=== PATIENT | male | born 1930 | race Hispanic/Latino ===

== ENCOUNTER 2016-08-19 11:50 | Inpatient (IN) | payer MEDICARE, BC ==
[2016-08-19 12:13] VITALS: BMI 27.4
--- NOTE | 2016-08-19 12:19 | ED PDOC ---
Arrival/HPI - General Time Seen by Provider: 08/19/16 11:54 Historian: Patient - History of Present Illness Narrative History of Present Illness (Text): 08/19/16 12:16 A 85 year old male, whose past medical history includes hemophilia and hypertension, was sent into the emergency department by PMD complaining of worsening shortness of breath over the past week. Patient denies any relieving or exacerbating factors. Patient denies any fever, nausea, vomiting, diarrhea, abdominal pain, urinary symptoms, hematuria, hematochezia, rectal bleeding, chest pain or any other complaints. Construction Inspector: Dr. Walker Time/Duration: 1 week Symptom Course: Worsening Quality: Other Context: Home Past Medical History - Provider Review Nursing Documentation Reviewed: Yes - Infectious Disease Hx of Infectious Diseases: None - Tetanus Immunization Tetanus Immunization: Unknown - Cardiac Hx Cardiac Disorders: Yes Hx Hypertension: Yes Hx Pacemaker: No - Pulmonary Hx Respiratory Disorders: No - Neurological Hx Neurological Disorder: Yes Other/Comment: myastenia gravis - HEENT Hx HEENT Disorder: No - Renal Hx Renal Disorder: No - Endocrine/Metabolic Hx Endocrine Disorders: Yes - Hematological/Oncological Hx Blood Disorders: Yes Hx Hemophilia: Yes Other/Comment: Factor VIII deficiency - Integumentary Hx Dermatological Disorder: Yes Other/Comment: shingles - Musculoskeletal/Rheumatological Hx Musculoskeletal Disorders: Yes Hx Falls: No Other/Comment: bilateral knee surgery - Gastrointestinal Hx Gastrointestinal Disorders: No - Genitourinary/Gynecological Hx Genitourinary Disorders: No - Psychiatric Hx Psychophysiologic Disorder: No Hx Emotional Abuse: No Hx Physical Abuse: No Hx Substance Use: No - Surgical History Hx Coronary Stent: Yes Hx Orthopedic Surgery: Yes (bilat knees) - Anesthesia Hx Anesthesia: Yes Hx Anesthesia Reactions: No Hx Malignant Hyperthermia: No - Suicidal Assessment Feels Threatened In Home Enviroment: No Family/Social History - Physician Review Nursing Documentation Reviewed: Yes Family/Social History: No Known Family HX Smoking Status: Former Smoker Hx Alcohol Use: No Hx Substance Use: No Hx Substance Use Treatment: No Allergies/Home Meds Allergies/Adverse Reactions: Allergies No Known Allergies Allergy (Verified 05/23/16 10:52) Home Medications: Home Meds Medication Instructions Recorded Confirmed Aspirin [Aspir 81] 81 mg PO Q48H 09/12/13 06/28/16 Metoprolol Tartrate 25 mg PO DAILY 12/14/15 06/28/16 Prednisone [Deltasone] 20 mg PO DAILY 06/28/16 06/28/16 Review of Systems - Physician Review All systems were reviewed & negative as marked: Yes - Review of Systems Constitutional: absent: Fevers Respiratory: SOB Cardiovascular: absent: Chest Pain Gastrointestinal: absent: Abdominal Pain, Diarrhea, Nausea, Vomiting, Hematochezia Genitourinary Male: absent: Dysuria, Frequency, Hematuria, Urinary Output Changes Physical Exam Vital Signs Reviewed: Yes Vital Signs Temp Pulse Resp BP Pulse Ox 08/19/16 14:21 90 135/96 H 08/19/16 13:29 85 18 131/93 H 100 08/19/16 12:54 131 H 146/113 H 08/19/16 12:30 97.4 F L 108 H 25 H 146/113 H 98 08/19/16 12:24 97.5 F L 123 H 25 H 146/113 H 98 08/19/16 12:16 98.0 F 121 H 18 151/96 H 97 Temperature: Afebrile Blood Pressure: Hypertensive Pulse: Tachycardic Respiratory Rate: Normal Appearance: Positive for: Well-Appearing, Non-Toxic, Comfortable Pain Distress: None Mental Status: Positive for: Alert and Oriented X 3 - Systems Exam Head: Present: Atraumatic, Normocephalic Pupils: Present: PERRL Extroacular Muscles: Present: EOMI Conjunctiva: Present: Normal Mouth: Present: Moist Mucous Membranes Neck: Present: Normal Range of Motion Respiratory/Chest: Present: Good Air Exchange, Other (Crackles to bilateral bases). No: Respiratory Distress, Accessory Muscle Use Cardiovascular: Present: Regular Rate and Rhythm, Normal S1, S2. No: Murmurs Abdomen: Present: Normal Bowel Sounds. No: Tenderness, Distention, Peritoneal Signs Back: Present: Normal Inspection Upper Extremity: Present: Normal Inspection. No: Cyanosis, Edema Lower Extremity: Present: Normal Inspection. No: Edema Neurological: Present: GCS=15, CN II-XII Intact, Speech Normal Skin: Present: Warm, Dry, Normal Color. No: Rashes Psychiatric: Present: Alert, Oriented x 3, Normal Insight, Normal Concentration Medical Decision Making ED Course and Treatment: 08/19/16 12:16 Impression: A 85 year old male sent in for worsening shortness of breath. Patient denies any chest pain. Plan: -- Chest xray -- EKG -- Labs -- Blood culture -- Urinalysis -- Reassess and disposition Progress Notes: EKG shows new onset atrial fibrillation at [address]/T wave changes. Interpreted by me. Report Date : 08/19/2016 13:20:34 Procedure: Chest xray Dictator : Toby Isidro MD IMPRESSION: No active disease. 08/19/16 13:34 Repeat EKG shows atrial fibrillation at [address]/T wave changes. Interpreted by me. 08/19/16 13:[address] Walker, patient's leasing specialist, who states patient can receive Heparin and accepts patient for telemetry admission. pt known to have normal factor level at this time. no h/o of bleeding as pe rpt. 08/19/16 14:11 - Lab Interpretations Lab Results: 08/19/16 12:40 08/19/16 12:40 Lab Results 08/19/16 12:40: WBC 7.8 D, RBC 4.50, Hgb 13.2 L, Hct 39.3 L, MCV 87.3, MCH 29.3 , MCHC 33.6, RDW 13.6, Plt Count 260, MPV 10.3, Gran % 79.4 H, Lymph % (Auto) 9.7 L, [place] % (Auto) 10.3 H, Eos % (Auto) 0.3 L, Baso % (Auto) 0.3, Gran # 6.17 , Lymph # 0.8 L, [place] # 0.8 H, Eos # 0.0, Baso # 0.02, PT 12.3 H, INR 1.14 H, APTT 36.6 H, Sodium 137, Potassium 5.0, Chloride 100, Carbon Dioxide 29, Anion Gap 13, BUN 14, Creatinine 0.8, Est GFR ( Amer) > 60, Est GFR (Non-Af Amer) > 60, Random Glucose 105, Calcium 8.9, Magnesium 2.0, Total Bilirubin 0.9 , AST 32, ALT 60 H, Alkaline Phosphatase 99, Lactate Dehydrogenase 517, Total Creatine Kinase 56, Troponin I 0.03 D, NT-Pro-B Natriuret Pep 1740 H, Total Protein 6.6, Albumin 3.7, Globulin 3.0, Albumin/Globulin Ratio 1.2, Urine Color Yellow, Urine Appearance Clear, Urine pH 6.0, Ur Specific [place] 1.020, Urine Protein Negative, Urine Glucose (UA) Negative, Urine Ketones Negative, Urine Blood Trace-lysed H, Urine Nitrate Negative, Urine Bilirubin Negative, Urine Urobilinogen 1.0 H, Ur Leukocyte Esterase Negative, Urine RBC 0 - 2, Urine WBC Negative, Urine Bacteria Trace I have reviewed the lab results: Yes - RAD Interpretation Radiology Orders: 08/19/16 12:14 CHEST PORTABLE [RAD] Stat - Medication Orders Current Medication Orders: Aspirin (Ecotrin) 81 mg PO Q48H [facility] Last Admin: 08/19/16 14:21 Dose: 81 MG Metoprolol Tartrate (Lopressor) 25 mg PO DAILY [facility] Last Admin: 08/19/16 14:21 Dose: 25 MG MAR Pulse and Blood Pressure Document 08/19/16 14:21 MMA (Rec: 08/19/16 14:21 [place] [facility] [id number][place] Pulse Pulse Rate (60-90) 90 Blood Pressure Blood Pressure (100/60-150/90) 135/96 Discontinued Medications Diltiazem HCl (Cardizem) 15 mg IVP STAT STA Stop: 08/19/16 12:29 Last Admin: 08/19/16 12:54 Dose: 15 MG MAR Pulse and Blood Pressure Document 08/19/16 12:54 MMA (Rec: 08/19/16 12:54 [facility] [id number][place] Pulse Pulse Rate (60-90) 131 Blood Pressure Blood Pressure (100/60-150/90) 146/113 IVP Administration Document 08/19/16 12:54 MMA (Rec: 08/19/16 12:54 [facility] [id number][place] Charges for Administration # of IVP Administrations 1 Enoxaparin Sodium (Lovenox) 74 mg SC STAT STA PRN Reason: Protocol Stop: 08/19/16 13:45 Last Admin: 08/19/16 14:20 Dose: 74 MG Subcutaneous Administrations Document 08/19/16 14:20 MMA (Rec: 08/19/16 14:20 MMA [facility] [id number][place] Injection Site MAR Injection Site Umbilicus Charges for Administration # of Subcutaneous Administrations 1 Furosemide (Lasix) 40 mg IVP STAT STA Stop: 08/19/16 13:41 Last Admin: 08/19/16 14:21 Dose: 40 MG MAR Blood Pressure Document 08/19/16 14:21 MMA (Rec: 08/19/16 14:21 [id number]) Blood Pressure Blood Pressure (100/60-150/90) 135/96 IVP Administration Document 08/19/16 14:21 MMA (Rec: 08/19/16 14:21 [id number]) Charges for Administration # of IVP Administrations 1 - Scribe Statement The provider has reviewed the documentation as recorded by the Nelidaibsindy Blackwell Provider Scribe Attestation: All medical record entries made by the Scribe were at my direction and personally dictated by me. I have reviewed the chart and agree that the record accurately reflects my personal performance of the history, physical exam, medical decision making, and the department course for this patient. I have also personally directed, reviewed, and agree with the discharge instructions and disposition. Disposition/Present on Arrival - Present on Arrival Any Indicators Present on Arrival: No History of DVT/PE: No History of Uncontrolled Diabetes: No Urinary Catheter: No History Surgical Site Infection Following: None - Disposition Have Diagnosis and Disposition been Completed?: Yes Diagnosis: Atrial fibrillation, Congestive heart failure Disposition: HOSPITALIZED Disposition Time: 13:45 Condition: GOOD
[2016-08-19 12:55] LABS: ADD MANUAL DIFF? NO
[2016-08-19 13:00] LABS: BASO # 0.02 K/mm3 (0.0-2.0); BASO % 0.3 % (0.0-3.0); EOS % 0.3 % (1.5-5.0); GRAN # 6.17 (1.4-6.5); GRAN % 79.4 % (50.0-68.0); HEMATOCRIT 39.3 % (42.0-52.0); LYMPH # 0.8 (1.2-3.4); LYMPH % 9.7 % (22.0-35.0); MEAN CELL VOLUME 87.3 fL (80.0-105.0); MEAN CORPUSCULAR HEMOGLOBIN 29.3 pg (25.0-35.0); MEAN CORPUSCULAR HGB CONC 33.6 g/dl (31.0-37.0); MEAN PLATELET VOLUME 10.3 fl (7.0-11.0); MONO # 0.8 (0.1-0.6); MONO % 10.3 % (1.0-6.0); PLATELET COUNT 260 10^3/uL (120.0-450.0); RED CELL DISTRIBUTION WIDTH 13.6 % (11.5-14.5); WHITE BLOOD COUNT 7.8 10^3/ul (4.5-11.0)
[2016-08-19 13:09] LABS: URINE BILIRUBIN NEGATIVE (NEGATIVE); URINE BLOOD TRACE-LYSED (NEGATIVE); URINE GLUCOSE (UA) NEGATIVE (NEGATIVE); URINE KETONE NEGATIVE (NEGATIVE); URINE LEUKOCYTE ESTERASE NEGATIVE Leu/uL (NEGATIVE); URINE PROTEIN NEGATIVE mg/dL (<30 mg/dL)
[2016-08-19 13:10] LABS: ALB/GLOB RATIO 1.2 (1.1-1.8); ALKALINE PHOSPHATASE 99 U/L (38-133); ALT/SGPT 60 U/L (7-56); AST/SGOT 32 U/L (15-59); BILIRUBIN,TOTAL 0.9 mg/dL (0.2-1.3); BLOOD UREA NITROGEN 14 mg/dL (7-21); CALCIUM 8.9 mg/dL (8.4-10.5); CARBON DIOXIDE 29 mmol/L (21-33); CHLORIDE 100 mmol/L (98-107); GFR AFRICAN-AMERICAN > 60; GLUCOSE,RANDOM 105 mg/dL (70-110); SODIUM 137 mmol/L (132-148); TOTAL PROTEIN 6.6 g/dL (5.8-8.3)
[2016-08-19 13:11] LABS: INR 1.14 (0.93-1.08); PARTIAL THROMBOPLASTIN TIME 36.6 Seconds (23.7-30.8)
[2016-08-19 13:15] LABS: URINE APPEARANCE CLEAR (CLEAR); URINE COLOR YELLOW (YELLOW)
[2016-08-19 13:20] LABS: URINE BACTERIA TRACE (NEG); URINE RBC 0 - 2 /hpf (0-2); URINE WBC NEGATIVE /hpf (0-6)
[2016-08-19 13:22] LABS: TROPONIN I 0.03 ng/mL
--- NOTE | 2016-08-19 13:22 | RAD ---
HISTORY: sob COMPARISON: 05/05/2016 FINDINGS: LUNGS: No active pulmonary disease. PLEURA: No significant pleural effusion identified, no pneumothorax apparent. CARDIOVASCULAR: Normal. OSSEOUS STRUCTURES: No significant abnormalities. VISUALIZED UPPER ABDOMEN: Normal. OTHER FINDINGS: None. IMPRESSION: No active disease.
[2016-08-19] MEDS ORDERED: Enoxaparin 80 mg Syringe SC STA (13:44)
--- NOTE | 2016-08-19 18:18 | CARD ---
APPROVED REPORT EKG Measurement Heart [id number] <Conclusion> Atrial fibrillation Left axis deviation Inferior infarct, age undetermined Abnormal ECG
--- NOTE | 2016-08-19 18:19 | CARD ---
APPROVED REPORT EKG Measurement Heart [id number] <Conclusion> Atrial fibrillation with rapid ventricular response with premature ventricular or aberrantly conducted complexes Left axis deviation Inferior infarct, age undetermined Abnormal ECG
[2016-08-19] MEDS ORDERED: Potassium Chloride 20 mEq ER Tab PO STA (20:04)
[2016-08-19] MEDS ORDERED: Albuterol-Ipratrop 3 mg / 0.5 (3 ml) UD IH PRN (20:27)
[2016-08-19] MEDS: Albuterol-Ipratrop 3 mg / 0.5 (3 ml) UD IH SCH (20:39)
[2016-08-20 08:01] LABS: HEMATOCRIT 38.1 % (42.0-52.0); MEAN CORPUSCULAR HEMOGLOBIN 28.9 pg (25.0-35.0); MEAN CORPUSCULAR HGB CONC 33.6 g/dl (31.0-37.0); MEAN PLATELET VOLUME 10.1 fl (7.0-11.0); RED CELL DISTRIBUTION WIDTH 13.6 % (11.5-14.5); WHITE BLOOD COUNT 6.9 10^3/ul (4.5-11.0)
[2016-08-20 08:11] LABS: INR 1.15 (0.93-1.08); PARTIAL THROMBOPLASTIN TIME 39.9 Seconds (23.7-30.8)
[2016-08-20] MEDS: Albuterol-Ipratrop 3 mg / 0.5 (3 ml) UD IH SCH ×3 (08:16→20:05)
[2016-08-20 08:18] LABS: ALB/GLOB RATIO 1.3 (1.1-1.8); ALKALINE PHOSPHATASE 95 U/L (38-133); ALT/SGPT 53 U/L (7-56); AST/SGOT 28 U/L (15-59); BILIRUBIN,TOTAL 0.9 mg/dL (0.2-1.3); BLOOD UREA NITROGEN 17 mg/dL (7-21); CALCIUM 8.7 mg/dL (8.4-10.5); CARBON DIOXIDE 30 mmol/L (21-33); CHLORIDE 98 mmol/L (95-110); GFR AFRICAN-AMERICAN > 60; GLUCOSE,RANDOM 84 mg/dL (70-110); SODIUM 134 mmol/L (132-148); TOTAL PROTEIN 6.2 g/dL (5.8-8.3)
--- NOTE | 2016-08-20 10:21 | CON ---
DATE: 08/20/2016 Cardiology consultation (for Dr. Reed). HISTORY OF PRESENT ILLNESS: The patient is an 85-year-old male who presents with dyspnea. No chest pain noted. PAST MEDICAL HISTORY: Notable for hemophilia in the past. The patient's cardiac history is consistent with "heart murmur" in the past. A stress test done in 11/2015 revealed an ejection fraction of 45%. The patient received Lasix in the Emergency Room with resolution of his dyspnea today. PAST MEDICAL HISTORY: Free of diabetes mellitus. No previous myocardial infarction. SOCIAL HISTORY: The patient denies smoking. REVIEW OF SYSTEMS: A 14-point review of systems was reviewed. No abnormal bleeding noted, although he has had hemarthrosis in the past. Negative angina. Negative orthopnea. PHYSICAL EXAMINATION: VITAL SIGNS: Blood pressure is 122/81, the heart rate is in the 80s, atrial fibrillation. NECK: Negative JVD. LUNGS: Basilar rales. HEART: Revealed S1, S2. EXTREMITIES: Without edema. EKG shows atrial fibrillation with nonspecific ST-T changes with a left anterior hemiblock. LABORATORIES: Reveals a troponin that is negative x 1. The proBNP is 1740. Creatinine is normal. Hemoglobin is 12.8. IMPRESSION: 1. Acute systolic congestive heart failure. 2. Dilated cardiomyopathy. 3. New onset atrial fibrillation. 4. History of hemophilia. 5. Aortic stenosis versus sclerosis. 6. Dyspnea, which is improved. Given these findings, the patient is currently not anticoagulated. Awaiting hematology's input befor e anticoagulation. We will continue Lasix today. An echocardiogram has been ordered. Frank Ramirez MD cc: [id number] TT: 08/20/2016 10:20:36 Confirmation # [id number] Dictation # [id number] asad
[2016-08-20] MEDS: Enoxaparin 60 mg Syringe SC SCH (15:46)
--- NOTE | 2016-08-21 01:53 | HP ---
HISTORY OF PRESENT ILLNESS: The patient is an 85-year-old male who presented to our office on Monday with increased shortness of breath for 2 weeks. He is unable to lay flat and sleep in the night. He is short of breath at rest. Denies any fever. He has a dry cough. No chest pain. He has a history of coronary artery disease, status post cardiac stent placement at [facility]. 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 His factor VIII levels were around 1%. He has been getting for past 3 months, recombinant factor VIII twice a week. He was also given steroids and he is on tapering doses of steroids, now 5 mg of prednisone every other day. A recent factor level was 69 and inhibitor was undetectable. He has a hemarthrosis of the left knee and extensive bruising which all of them have resolved now. No bleeding. He was sent to ED from office. He was found to have rapid atrial fibrillation and congestive cardiac failure. Chest x-ray did not show any infiltrate. He has known aortic valve stenosis. He also has a history of myasthenia gravis. He was on steroids for that which he weaned himself off a year ago. He does not see any endocrine doctor. PAST MEDICAL HISTORY: 1. Acquired hemophilia. 2. Aortic valve stenosis. 3. Congestive cardiac failure. 4. History of shingles. 5. Bilateral knee surgery. 6. Recent left knee hemarthrosis. 7. Extensive ecchymosis, recently resolved. 8. Coronary artery disease, status post cardiac stent placement. 9. Myasthenia gravis. PAST SURGICAL HISTORY: Coronary stent placement, bilateral knee surgery and knee replacement. FAMILY HISTORY: No positive history in mother or father. PERSONAL HISTORY: Ex-smoker. No history of alcohol abuse. SOCIAL HISTORY: Lives at home with . ALLERGIES: No known drug allergies. HOME MEDICATIONS: Metoprolol 25 mg daily, aspirin 81 mg daily and prednisone 5 mg every other day. REVIEW OF SYSTEMS: As per HPI. The rest of 12-point review of systems reviewed and negative. PHYSICAL EXAMINATION: GENERAL: Mild respiratory distress. VITAL SIGNS: Heart rate is 110 per minute, temperature 98.7, respiratory 15 per minute, blood pressure 130/80 and pulse ox is 98% on room air. HEENT: Normal. CHEST: Bilateral bronchospasm present. Crepitations at bases. CARDIOVASCULAR: Atrial fibrillation positive. Heart rate is irregularly irregular. ABDOMEN: Soft, nontender with no hepatosplenomegaly. EXTREMITIES: No edema. NEUROLOGIC: Alert and oriented x 3. No focal sensorimotor deficit. SKIN: No petechia and no rash. CENTRAL NERVOUS SYSTEM: Alert and oriented x 3. No sensorimotor deficit. LYMPHATICS: No lymphadenopathy. No spine tenderness. LABORATORY DATA: White count 7.8, hemoglobin 13.2, hematocrit 39.3 and platelet count 260. Sodium 137, potassium 5, BUN 14, creatinine 0.8, glucose 104, PTT 36, INR 1.1 and PT 12.3. ASSESSMENT AND PLAN: 1. Acquired hemophilia. 2. New onset atrial fibrillation. 3. Congestive cardiac failure. 4. Aortic valve stenosis. 5. Myasthenia gravis. 6. Coronary artery disease. PLAN: He will be admitted to tele monitoring. He received one dose of IV Cardizem in the ER. Consulted Dr. Reed. Cardizem p.o. started at 60 mg orally 3 times a day. Will do aggressive diuresis. He received 40 mg IV Lasix in the ER and 1 dose of Lasix now as he is very tachypneic, 20 mg of IV Lasix stat and K-Dur 20 mEq p.o. daily. Will increase the metoprolol to 25 mg p.o. b.i.d. for tachycardia. Ambien 5 mg p.o. at bedtime p.r.n. Will give DuoNeb every 8 hours and p.r.n. Echocardiogram ordered. Factor VIII level and inhibitor level drawn and sent stat. Anticoagulation; we have to be very cautious as he has acquired hemophilia. Recent factor levels have been normal. I will give him 50 mg subcu Lovenox q.12 hours. He is not a candidate for long-term anticoagulation because of very high risk of bleeding. Factor VIII levels need to be closely monitored. Echocardiogram done today, preliminary results showed severe aortic stenosis. Will discuss with cardiology for further plan and management. Heart rate is being monitored and is better controlled now. Shortness of breath has improved since admission. I discussed with the patient all of the above. discussed with the staff nurse. Phuong Walker MD cc: [id number] TT: 08/21/2016 01:52:22 sn [email or web address]
[2016-08-21] MEDS: Pantoprazole 40 mg EC Tab PO SCH (06:23)
[2016-08-21] MEDS: Albuterol-Ipratrop 3 mg / 0.5 (3 ml) UD IH SCH ×3 (07:30→21:00)
[2016-08-21 08:03] LABS: HEMATOCRIT 39.9 % (42.0-52.0); MEAN CELL VOLUME 86.2 fL (80.0-105.0); MEAN CORPUSCULAR HEMOGLOBIN 29.2 pg (25.0-35.0); MEAN CORPUSCULAR HGB CONC 33.8 g/dl (31.0-37.0); MEAN PLATELET VOLUME 10.4 fl (7.0-11.0); RED CELL DISTRIBUTION WIDTH 13.8 % (11.5-14.5); WHITE BLOOD COUNT 6.5 10^3/ul (4.5-11.0)
--- NOTE | 2016-08-21 10:35 | CARD ---
APPROVED REPORT EXAM: Two-dimensional and M-mode echocardiogram with Doppler and color Doppler. INDICATION Atrial Fibrillation 2D DIMENSIONS Left Atrium (2D)5.1 (1.6-4.0cm)IVSd1.1 (0.7-1.1cm) Aortic Root (2D)3.4 (2.0-3.7cm)LVDd4.0 (3.9-5.9cm) LVOT Diameter2.0 (1.8-2.4cm)PWd1.2 (0.7-1.1cm) LVDs3.0 (2.5-4.0cm)FS (%) 24.4 % LVEF (%)49.0 (>50%) M-Mode DIMENSIONS Aortic Cusp Exc.1.60 (1.5-2.0cm) Aortic Valve AoV Peak Halsuoht481.0cm/sAoV VTI36.7cmAO Peak GR.15mmHg LVOT Peak Qcotuhuq64.6cm/sLVOT VTI9.02cmAO Mean GR.8mmHg RYDER (VMAX)0.99or6MSJ (VTI)0.77cm2 Mitral Valve MV E Huokfrto363.0cm/s TDI Lateral E' Peak V11.20cm/sMedial E' Peak V5.36cm/sE/Lateral E'11.8 E/Medial E'24.6 Pulmonary Valve PV Peak Vipyqocz10.1cm/sPV Peak Grad.2mmHg Tricuspid Valve TR Peak Fvphlfxs861dt/sRAP IQPEPYYH6raMaPA Peak Gr.26mmHg [id number] LEFT VENTRICLE The left ventricle is normal size. There is borderline to mild concentric left ventricular hypertrophy. The systolic function is moderately impaired.EF-35% There is moderate to severe hypokinesis in the mid-anteroseptal wall. A FIB No left ventricle thrombus noted on this study. There is no ventricular septal defect visualized. There is no left ventricular aneurysm. There is no mass noted in the left ventricle. RIGHT VENTRICLE The right ventricle is mildly to moderately dilated. There is normal right ventricular wall thickness. Systolic function is of RV mildly to moderately reduced. ATRIA The left atrium is moderately dilated. The right atrium is moderately dilated. The interatrial septum is intact with no evidence for an atrial septal defect. AORTIC VALVE The aortic valve is calcified and displays decreased opening. There is trace aortic regurgitation. There is moderate to severe valvular aortic stenosis. There is no aortic valvular vegetation. MITRAL VALVE The mitral valve is thickened but opens well. Mitral annular calcification is moderate. Mitral regurgitation is mild to moderate. There is no mitral valve stenosis. There is no evidence of mitral valve prolapse. TRICUSPID VALVE The tricuspid valve leaflets are thickened , but open well. There is mild to moderate tricuspid regurgitation.RVSP-31 mmof HG. There is no tricuspid valve stenosis. There is no tricuspid valve prolapse or vegetation. PULMONIC VALVE The pulmonary valve is normal in structure. There is trace pulmonic valvular regurgitation. There is no pulmonic valvular stenosis. GREAT VESSELS The aortic root is normal in size. The ascending aorta is normal in size. The pulmonary artery is normal. The IVC is dilated. PERICARDIAL EFFUSION There is no pleural effusion. There is no pericardial effusion. <Conclusion> The left ventricle is normal size. There is borderline to mild concentric left ventricular hypertrophy. The systolic function is moderately impaired.EF-35% Systolic function is of RV mildly to moderately reduced. There is moderate to severe valvular aortic stenosis. Mitral regurgitation is mild to moderate. There is mild to moderate tricuspid regurgitation.RVSP-31 mmof HG.
--- NOTE | 2016-08-21 11:56 | PN ---
DATE: 08/21/2016 The patient's heart rate is much better controlled on p.o. Cardizem. The patient wants to go home. PHYSICAL EXAMINATION: VITAL SIGNS: Blood pressure is 118/66. The heart rate is in the 80s, atrial fibrillation. NECK: Negative JVD. LUNGS: Without rales. HEART: Revealed S1, S2. EXTREMITIES: Without edema. The hemoglobin is 13.5. Chemistries are unremarkable. Echocardiogram reveals ejection fraction of 35% with mild LVH. There is aortic stenosis noted with p ulmonary hypertension. IMPRESSION: 1. Atrial fibrillation. 2. Aortic stenosis. 3. Depressed left ventricle. 4. Hemophilia. Given these findings, awaiting for Dr. Walker's input to see whether the patient can be anticoagulated . The patient is at increase for thromboembolism with a possible cerebrovascular accident. In addition, future intervention of the aortic valve may be necessary. I have discussed this with the patient and family in detail. In the morning, we will transfer the ca re back to Dr. Ashley. Frank Ramirez MD cc: [id number] TT: 08/21/2016 11:55:50 Confirmation # [id number] Dictation # [id number]
[2016-08-21] MEDS: Enoxaparin 60 mg Syringe SC SCH ×2 (15:16→23:08)
--- NOTE | 2016-08-21 18:47 | CP.PCM.PN ---
Subjective - Date & Time of Evaluation Date of Evaluation: 08/21/16 Time of Evaluation: 13:00 - Subjective Subjective: HISTORY OF PRESENT ILLNESS: The patient is an 85-year-old male who presented to our office on Monday with increased shortness of breath for 2 weeks. He is unable to lay flat and sleep in the night. He is short of breath at rest. Denies any fever. He has a dry cough. No chest pain. He has a history of coronary artery disease, status post cardiac stent placement at [facility]. 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 His factor VIII levels were around 1%. He has been getting for past 3 months, recombinant factor VIII twice a week. He was also given steroids and he is on tapering doses of steroids, now 5 mg of prednisone every other day. A recent factor level was 69 and inhibitor was undetectable. He has a hemarthrosis of the left knee and extensive bruising which all of them have resolved now. No bleeding. He was sent to ED from office. He was found to have rapid atrial fibrillation and congestive cardiac failure. Chest x-ray did not show any infiltrate. He has known aortic valve stenosis. He also has a history of myasthenia gravis. He was on steroids for that which he weaned himself off a year ago. He does not see any endocrine doctor. He had an episode of SVT with heart rate of 180/min. Shortness of breath has improved markedly since admission. PAST MEDICAL HISTORY: 1. Acquired hemophilia. 2. Aortic valve stenosis. 3. Congestive cardiac failure. 4. History of shingles. 5. Bilateral knee surgery. 6. Recent left knee hemarthrosis. 7. Extensive ecchymosis, recently resolved. 8. Coronary artery disease, status post cardiac stent placement. 9. Myasthenia gravis. PAST SURGICAL HISTORY: Coronary stent placement, bilateral knee surgery and knee replacement. FAMILY HISTORY: No positive history in mother or father. PERSONAL HISTORY: Ex-smoker. No history of alcohol abuse. SOCIAL HISTORY: Lives at home with . ALLERGIES: No known drug allergies. HOME MEDICATIONS: Metoprolol 25 mg daily, aspirin 81 mg daily and prednisone 5 mg every other day. REVIEW OF SYSTEMS: As per HPI. The rest of 12-point review of systems reviewed and negative. PHYSICAL EXAMINATION: GENERAL: Mild respiratory distress. VITAL SIGNS: reviewed. HEENT: Normal. CHEST: Bilateral bronchospasm present. Crepitations at bases. CARDIOVASCULAR: Atrial fibrillation positive. Heart rate is irregularly irregular. ABDOMEN: Soft, nontender with no hepatosplenomegaly. EXTREMITIES: No edema. NEUROLOGIC: Alert and oriented x 3. No focal sensorimotor deficit. SKIN: No petechia and no rash. CENTRAL NERVOUS SYSTEM: Alert and oriented x 3. No sensorimotor deficit. LYMPHATICS: No lymphadenopathy. No spine tenderness. LABORATORY DATA: reviewed. ASSESSMENT AND PLAN: 1. Acquired hemophilia. 2. New onset atrial fibrillation. 3. Congestive cardiac failure. 4. Aortic valve stenosis. 5. Myasthenia gravis. 6. Coronary artery disease. PLAN: 1. CV: Severe aortic stenosis with CHF. New onset A-Fib. episode of tachycardia with HR 180/min. Cardizem p.o. started at 60 mg orally 3 times a day. Metorpolol 25 mg BID. Tele monitoring. on anti -coagulation with lovenox 50 mg BID. Will discuss with cardiology about length of anticoagulation. 2. Acquired hemophillia. Factor level pending. He is off Factor VIII infusion for past 3 weeks. Caution with anticoagulation due to bleeding disorder. 3. Aortic stenosis : cardiology input awaited. 4. Mysthenia gravis : off steroids now. need follow up with endocrine. Phuong Walker MD Objective - Vital Signs/Intake and Output Vital Signs (last 24 hours): Temp Pulse Resp BP Pulse Ox 98.2 F 83 20 112/77 97 08/21/16 18:00 08/21/16 18:00 08/21/16 18:00 08/21/16 18:00 08/21/16 06:00 Intake and Output: 08/21/16 08/21/16 06:59 18:59 Intake Total 2160 240 Output Total 4 2 Balance 2156 238 - Medications Medications: Current Medications Albuterol/Ipratropium (Duoneb 3 Mg/0.5 Mg (3 Ml) Ud) 3 ml IH TIDRESP [facility] Last Admin: 08/21/16 13:43 Dose: 3 ml Albuterol/Ipratropium (Duoneb 3 Mg/0.5 Mg (3 Ml) Ud) 3 ml IH Q2H PRN PRN Reason: Shortness of Breath Aspirin (Ecotrin) 81 mg PO Q48H [facility] Last Admin: 08/21/16 14:29 Dose: 81 mg Diltiazem HCl (Cardizem) 60 mg PO TID [facility] Last Admin: 08/21/16 17:17 Dose: 60 mg Enoxaparin Sodium (Lovenox) 50 mg SC Q12H GAYATRI PRN Reason: Protocol Last Admin: 08/21/16 15:16 Dose: 50 mg Furosemide (Lasix) 40 mg IVP DAILY [facility] Last Admin: 08/21/16 10:12 Dose: 40 mg Metoprolol Tartrate (Lopressor) 25 mg PO BID [facility] Last Admin: 08/21/16 17:16 Dose: 25 mg Pantoprazole Sodium (Protonix Ec Tab) 40 mg PO 0630 [facility] Last Admin: 08/21/16 06:23 Dose: 40 mg Sennosides (Senokot Tab) 8.6 mg PO BID [facility] Last Admin: 08/21/16 17:14 Dose: Not Given Zolpidem Tartrate (Ambien) 5 mg PO HS PRN; Protocol PRN Reason: Insomnia Last Admin: 08/20/16 23:28 Dose: 5 mg - Labs Labs: 08/21/16 07:57 08/20/16 07:53 PT 12.4 Seconds (9.9-11.8) H 08/20/16 07:53 INR 1.15 (0.93-1.08) H 08/20/16 07:53 APTT 39.9 Seconds (23.7-30.8) H 08/20/16 07:53
[2016-08-22] MEDS: Pantoprazole 40 mg EC Tab PO SCH (06:45)
--- NOTE | 2016-08-22 06:57 | PN ---
DATE: 08/22/2016 SUBJECTIVE: The patient has no complaints of any chest pain, no shortness of breath, no headaches. PHYSICAL EXAMINATION: VITAL SIGNS: Temperature is 97.8, pulse is 77, blood pressure 97/54, respirations 20, O2 saturation 95%. GENERAL: The patient comfortable, in no acute distress. HEENT: Anicteric sclerae. Moist mucosa. NECK: No JVD or adenopathy. CARDIAC: S1/S2. No murmurs. No rubs. Regular. RESPIRATORY: Clear to auscultation bilaterally. No wheezes, rales, or rhonchi. Good air entry. ABDOMEN: Bowel sounds are positive, soft, nontender, and nondistended. EXTREMITIES: No edema. Has 1+ pulses. ASSESSMENT: 1. Acquired hemophilia. 2. Atrial fibrillation. 3. Aortic stenosis. 4. Myasthenia gravis. 5. Coronary artery disease. PLAN: The patient is currently comfortable. He does have aortic stenosis. He is on Cardizem. He i s on Lovenox for anticoagulation. There are risks of bleeding and he does understand this. He is cu rrently on nebulizer treatments. He is on Lasix daily. He is receiving a heart healthy diet. He is being followed by cardiology. Will await further input from the highway worker. I will also have the patient continue to be followed by Dr. Walker, his platform loader. Missael Vicente MD cc: [id number] TT: 08/22/2016 06:56:53 Confirmation # [id number] Dictation # [id number] mn
[2016-08-22] MEDS: Albuterol-Ipratrop 3 mg / 0.5 (3 ml) UD IH SCH ×3 (07:44→21:19)
[2016-08-22 08:50] LABS: HEMATOCRIT 39.1 % (42.0-52.0); MEAN CELL VOLUME 86.1 fL (80.0-105.0); MEAN CORPUSCULAR HEMOGLOBIN 28.9 pg (25.0-35.0); MEAN CORPUSCULAR HGB CONC 33.5 g/dl (31.0-37.0); MEAN PLATELET VOLUME 9.7 fl (7.0-11.0); RED CELL DISTRIBUTION WIDTH 13.7 % (11.5-14.5); WHITE BLOOD COUNT 7.3 10^3/ul (4.5-11.0)
[2016-08-22 09:09] LABS: ALB/GLOB RATIO 1.2 (1.1-1.8); ALKALINE PHOSPHATASE 97 U/L (38-133); ALT/SGPT 46 U/L (7-56); AST/SGOT 25 U/L (15-59); BILIRUBIN,TOTAL 1.1 mg/dL (0.2-1.3); BLOOD UREA NITROGEN 17 mg/dL (7-21); CALCIUM 8.5 mg/dL (8.4-10.5); CARBON DIOXIDE 30 mmol/L (21-33); CHLORIDE 94 mmol/L (95-110); GFR AFRICAN-AMERICAN > 60; GLUCOSE,RANDOM 93 mg/dL (70-110); POTASSIUM 3.9 mmol/L (3.6-5.0); SODIUM 135 mmol/L (132-148); TOTAL PROTEIN 6.9 g/dL (5.8-8.3)
--- NOTE | 2016-08-22 09:29 | PN ---
DATE: 08/22/2016 REASON FOR CONSULTATION AND FOLLOWUP: Atrial fibrillation, new onset, acquired hemophilia, aortic st enosis, cardiomyopathy, cannot place on long-term anticoagulation. BRIEF CLINICAL HISTORY: This is an 85-year-old male with past medical history of coronary artery dis ease status post a stent in the past, acquired hemophilia, history of hemarthrosis and Factor VIII le ss than 1%. Recently, patient had twice a week started recumbent Factor VIII infusion, last was done last week ____ last 3 months. Came in here with tachycardia in Dr. Walker's office. The patient see n and found to be new onset of atrial fibrillation. Because of prolonged PTT and acquired hemophilia , history of hemarthrosis, patient cannot be on prolonged anticoagulation. Baseline PTT 39.9 and PT 12.4 and INR 1.15 started on Lovenox. Discussed with the patient, discussed with Dr. Walker. W ill schedule for PALMIRA cardioversion. PHYSICAL EXAMINATION: VITAL SIGNS: Temperature afebrile, heart rate , blood pressure 114/74. HEENT: PERRLA. Extraocular muscles intact. NECK: Supple. No carotid bruits. No thyromegaly. CHEST: Clear to auscultation. HEART: S1, S2 regular. ABDOMEN: Soft. EXTREMITIES: Clubbing, cyanosis negative. BLOOD WORKUP: PT 12.4, PTT 39.9, INR 1.15. Chemistry shows sodium 134, potassium 4, chloride 94, ca rbon dioxide 30, anion gap of 10, BUN 17, creatinine 0.8. WBC 7.3, hemoglobin 13.1, hematocrit 39.1, platelet count 264. IMPRESSION: Acquired Factor VIII deficiency, hemophilia, aortic stenosis, cardiomyopathy. The patie nt underwent echocardiography 08/20/2016, shows ejection fraction 35%, moderate to severe aortic steno sis, systolic function of right ventricle moderately reduced, mitral regurg mild to moderate, m ild to moderate tricuspid regurgitation, right ventricular systolic pressure 31. Coronary artery dis ease, status post stent in the past at [facility], cardiomyopathy. RECOMMENDATION: We will do the PALMIRA cardioversion first so the patient cannot long-term anticoagulati on. Interim, continue Lovenox b.i.d. Further recommendation after the PALMIRA cardioversion. We will f ollow with you. Thank you, Dr. Walker/Dr. Vicente, for providing us the opportunity in taking care of the patient. W e will keep n.p.o. from morning for PALMIRA cardioversion. We will discuss with the family. Rich Reed MD cc: [id number] TT: 08/22/2016 09:29:08 Confirmation # [id number] Dictation # [id number]
[2016-08-22] MEDS ORDERED: Metoprolol 1 mg/ml Inj IVP ONE ×2 (12:19→12:48)
[2016-08-22] MEDS ORDERED: Flumazenil 0.1 mg/ml Inj (5ml) IVP ONE (12:19)
[2016-08-22] MEDS ORDERED: Naloxone 0.4 mg/ml Inj (Adult) ONE (12:20)
[2016-08-22] MEDS ORDERED: Midazolam 2 MG/2 ML VIAL IV ONE ×3 (12:25→12:42)
[2016-08-22] MEDS: Midazolam 2 MG/2 ML VIAL ONE ×3 (12:25→12:42)
[2016-08-22] MEDS ORDERED: Sodium Chloride 0.9% 1,000 ML IV SCH (13:00)
--- NOTE | 2016-08-22 14:38 | CARD ---
APPROVED REPORT EKG Measurement Heart [id number] [place] [id number] <Conclusion> Normal sinus rhythm Left axis deviation Minimal voltage criteria for LVH, may be normal variant Cannot rule out Anterior infarct, age undetermined S/P PALMIRA and Cardioversion
[2016-08-22] MEDS: Enoxaparin 60 mg Syringe SC SCH ×2 (14:58→23:30)
[2016-08-22] MEDS ORDERED: guaiFENesin DM 100 mg-10 mg/5 ml UD PO PRN (16:17)
--- NOTE | 2016-08-22 18:24 | CARD ---
APPROVED REPORT EXAM: Transesophageal echocardiogram with color flow Doppler and Synchronized Cardioversion. INDICATION Atrial Fibrillation 2D DIMENSIONS LVOT Diameter2.0 (1.8-2.4cm) Aortic Valve AoV Peak Kkrdznxt913.0cm/sAoV VTI29.2cmAO Peak GR.13mmHg LVOT Peak Xxsmnbxl13.3cm/sLVOT VTI12.20cmAO Mean GR.6mmHg RYDER (VMAX)1.65qz2UXP (VTI)1.31cm2 Mitral Valve E/A ratio0.0 TDI E/Lateral E'0.0E/Medial E'0.0 Tricuspid Valve TR Peak Xtfzkysw569fb/sRAP UADNGNCH82soFmII Peak Gr.46mmHg [id number] Reason For Test : PALMIRA before CV PROCEDURE After obtaining informed consent, patient underwent transesophageal echo in the Echo Lab. Type of Sedation : Conscious Sedation Sedation was administered by DR BADILLO. Sedation was achieved with Versed and , Fentanyl 3mg and 150 mcg intravenously. Echo enhancement indication: R/O Septal defect. Echo enhancement agent administered: Agitated Saline The PALMIRA was performed without complications. Synchronized Cardioversion attempted: Successful Rhythm following Synchronized Cardioversion: Throughout the procedure, the blood pressure, pulse oximetry, cardiac rhythm, and rate were monitored. The patient tolerated the procedure without adverse effects. Recovery from conscious sedation was uneventful and vital signs were stable. LEFT VENTRICLE The left ventricle is normal size. There is mild left ventricular hypertrophy. Left ventricle systolic function is mild to moderately impaired.EF_35-40% ( A FIB) There is global hypokinesis of the left ventricle. A FIB No left ventricle thrombus noted on this study. There is no ventricular septal defect visualized. There is no left ventricular aneurysm. There is no mass noted in the left ventricle. There is no mass noted in the left ventricle. RIGHT VENTRICLE The right ventricle is mildly dilated. There is normal right ventricular wall thickness. Systolic function is mildly to moderately reduced. ATRIA The left atrium is moderately dilated. The right atrium is mildly dilated. The interatrial septum is intact with no evidence for an atrial septal defect. AORTIC VALVE The aortic valve is moderately sclerotic. There is trace aortic regurgitation. There is moderate valvular aortic stenosis. RYDER 1.5 by Continuity, and 1.4 CM2 by planimetry There is no aortic valvular vegetation. MITRAL VALVE The mitral valve leaflets are thickened. There is no evidence of mitral valve prolapse. There is no mitral valve stenosis. Mitral regurgitation is moderate. TRICUSPID VALVE The tricuspid valve leaflets display thickening. There is mild to moderate tricuspid regurgitation. There is no tricuspid valve prolapse or vegetation. There is no tricuspid valve stenosis. PULMONIC VALVE The pulmonary valve is normal in structure. There is trace pulmonic valvular regurgitation. GREAT VESSELS The aortic root is normal in size. The ascending aorta is normal in size. The pulmonary artery is normal. The IVC is normal in size and collapses >50% with inspiration. PERICARDIAL EFFUSION There is no pericardial effusion. There is no pleural effusion. <Conclusion> Left ventricle systolic function is mild to moderately impaired.EF_35-40% ( A FIB) There is trace aortic regurgitation. There is moderate valvular aortic stenosis. RYDER 1.5 by Continuity, and 1.4 CM2 by planimetry Mitral regurgitation is moderate.. There is mild to moderate tricuspid regurgitation. Moderate Plaque in Descending aorta noted. Velocity in JONATHAN more than 0.4 m/s No thrombus or vegetattion noted 200 Joules synchronized Cardioversion done, pt converted to NSR RECOMMENDATION: 24 -48 hrs contonue lovenox then dc. Pt has Hx of Hemophillia and on maintenance dose of IV Factor VIII, Infusion can not tolerate die tripper anticoagulation, Hx of Hemarthrosis. CC; DRS. Ashley/ Aaron/ Carlos Vicente
[2016-08-23 01:07] VITALS: BP 100/54; RESP 18; TEMP 98.4; O2SAT 92
[2016-08-23 02:28] VITALS: PULSE 68
[2016-08-23] MEDS ORDERED: Enoxaparin 60 mg Syringe SC SCH (06:00)
[2016-08-23] MEDS: Albuterol-Ipratrop 3 mg / 0.5 (3 ml) UD IH SCH (08:31)
[2016-08-23] MEDS ORDERED: diltiaZEM 180 mg/24 Hours CD Cap PO SCH (10:00)
--- NOTE | 2016-08-23 10:33 | PN ---
DATE: 08/23/2016 REASON FOR CONSULTATION: Atrial fibrillation, new onset, acquired hemophilia, status post PALMIRA cardio version yesterday. BRIEF CLINICAL HISTORY: An 85-year-old male with past medical history significant for coronary arter y disease, status post stent in the past, acquired hemophilia, history of hemarthrosis, factor VIII 1 05/01, on maintenance dose of factor VIII infusion, admitted here in atrial fibrillation, CHF. The pat ient cannot take long-term anticoagulation because patient has a baseline elevated PTT 39.9, PT 12.4 and INR 1.15. The patient was put on Lovenox 50 subQ. Yesterday, the patient underwent PALMIRA cardiove rsion, now the patient in sinus. PHYSICAL EXAMINATION: VITAL SIGNS: Temperature afebrile, heart rate 60, blood pressure 100/54. HEENT: PERRLA. Extraocular muscles intact. NECK: Supple. No carotid bruits. No thyromegaly. CHEST: Clear to auscultation. HEART: S1, S2 regular. ABDOMEN: Soft. EXTREMITIES: Clubbing and cyanosis negative. LABORATORY DATA: Blood workup as follows: WBC 7.9, hemoglobin 13.9, hematocrit 39.1, platelet count 264. Chemistry shows sodium 135, potassium 3.9, chloride 94, carbon dioxide 30, anion gap of 15, BU N 19, creatinine 0.8. IMPRESSION: Decompensated congestive heart failure, acute on chronic secondary to systolic dysfuncti on, new onset of atrial fibrillation, status post transesophageal echocardiogram, cardioversion, hist ory of factor VIII deficiency acquired, elevated PT/INR and PTT, history of hemarthrosis. The patien t underwent yesterday transesophageal echocardiogram that revealed moderate aortic stenosis, valve ar ea 1.5 by continuity equation, 1.4 by planimetry, ejection fraction 35-40 in atrial fibrillation, mil d to moderate tricuspid regurgitation, moderate plaque in descending aorta, moderate mitral regurgita tion, no thrombus. A 200 joules synchronized cardioversion done. The patient converted to normal si nus. RECOMMENDATION: Continue anticoagulation 24-48 hours. Plan: Suggest the patient to stay overnight and continue Lovenox for tomorrow and then discontinue it, but the patient said he has been already e ducated and he is getting Lovenox from his hip surgery, so he can do at home, so discussed with Dr. Jed cardona and Suzan Borges, nurse practitioner, [employer], who started the patient on Lovenox and the current medication including Lasix p.o. and arrange 2 doses of Lovenox, one tonight and one tomorrow. The pa nel will be followed up upon discharge with Dr. Ashley. Thank you, Dr. Vicente, for providing the opportunity in taking care of the patient. The patient ne ed a stress test as outpatient. Will follow by Dr. Ashley to rule out underlying any coronary ischem ia. Rich Reed MD cc:Missael Vicente MD [id number] TT: 08/23/2016 10:32:46 Confirmation # [id number] Dictation # [id number] tn
--- NOTE | 2016-08-23 11:27 | CARD ---
APPROVED REPORT EKG Measurement Heart [id number] [place] [id number] <Conclusion> Normal sinus rhythm Left anterior fascicular block Cannot rule out Anterior infarct, age undetermined Abnormal ECG
--- NOTE | 2016-08-23 21:58 | DS ---
This is an 85-year-old male who is coming into the hospital because of atrial fibrillation that is a new onset. The patient had been seen by cardiology with Dr. Reed. He was successfully cardioverted and had improvement of his symptoms. The patient has a history of acquired hemophilia. He had a PALMIRA cardioversion done that was successful. He was placed on Lovenox to be given to himself today and t omorrow and then to be off the anticoagulation. The patient is at risk of complications because of t he acquired hemophilia. He otherwise feels well. He has no complaints of any chest pain or shortnes s of breath. I did speak to Dr. Reed regarding the patient. The patient was cleared for discharge. PHYSICAL EXAMINATION: VITAL SIGNS: Temperature is 98.4, pulse of 80, blood pressure 100/54, respirations 18, O2 saturation 92%. GENERAL: The patient comfortable, in no acute distress. HEENT: Anicteric sclerae. Moist mucosa. NECK: No JVD or adenopathy. CARDIAC: S1/S2. No murmurs. No rubs. Regular. RESPIRATORY: Clear to auscultation bilaterally. No wheezes, rales, or rhonchi. Good air entry. ABDOMEN: Bowel sounds are positive, soft, nontender, and nondistended. EXTREMITIES: No edema. Has 1+ pulses. ASSESSMENT: 1. Atrial fibrillation, status post cardioversion with 200 joules of energy. 2. Moderate aortic stenosis with a valve area of 1.5. 3. Factor VIII deficiency acquired. 4. Myasthenia gravis. 5. Coronary artery disease. PLAN: The patient is currently comfortable. He is going to be giving himself Lovenox at home. He i s going to continue with the metoprolol. He is on aspirin. He is receiving Lasix. CONDITION: Stable. ACTIVITIES: Increase as tolerated. FOLLOWUP: 1. Follow up with primary care doctor in 1-2 weeks. 2. Follow up with Dr. Reed in 2-3 weeks. Missael Vicente MD cc: [id number] TT: 08/23/2016 21:58:23 mn
[2016-08-24 21:43] LABS: COAG FACTOR VIII ACTIVITY 26 % (50-180)
== END 2016-08-23 10:34 | disposition home or self-care (01) | DRG 308 ==
LOC: ED 11:50 → ERH 13:45 → 2RSO 15:36
PROVIDERS: ADMIT Internal Medicine Medical Oncology; ATTEND Internal Medicine Nephrology
PROC: 5A2204Z Restoration of Cardiac Rhythm, Single (ICD-10-PCS; 2016-08-22)
PROC: B24BZZ4 Ultrasonography of Heart with Aorta, Transesophageal (ICD-10-PCS; principal; 2016-08-22 11:00)
DX: I48.91 Unspecified atrial fibrillation (principal); I11.0 Hypertensive heart disease with heart failure; I50.23 Acute on chronic systolic (congestive) heart failure; D68.311 Acquired hemophilia; D68.4 Acquired coagulation factor deficiency; I42.0 Dilated cardiomyopathy; G70.00 Myasthenia gravis without (acute) exacerbation; I08.3 Combined rheumatic disorders of mitral, aortic and tricuspid valves; I47.1 Supraventricular tachycardia; I25.10 Atherosclerotic heart disease of native coronary artery without angina pectoris; Z96.653 Presence of artificial knee joint, bilateral; Z86.19 Personal history of other infectious and parasitic diseases; Z87.891 Personal history of nicotine dependence; Z79.82 Long term (current) use of aspirin; Z95.5 Presence of coronary angioplasty implant and graft